=== PATIENT | female | born 1940 | race Caucasian/White ===

== ENCOUNTER → 2017-10-23 | Outpatient (CLI) | payer OTHER, BC ==
[~2017-10-23] MED LIST: ACET-1693 PO; AMB10 PO; ASPI1TAB83 PO; ATOR-24 PO; CLOP1TAB5 PO; DICL1GEL12 TOP; DOCU-94 PO; DONE1TAB25 PO; FAMO40TA6 PO; FERR1TAB62 PO; FLUO0.1S2 OP; FOLI1TAB8 PO; GLIM2TAB PO; HYDR-4079 PO; HYDRCRE28 PR; IMDSR30 PO; LEVO125T5 PO; LORA0.5T12 PO; LSN5 PO; LYR25 PO; MAGN400C2 PO; METO-217 PO; MOML PO; NITR0.4S UT; NVLGI SC; PILO5TAB2 PO; POLY335019 PO; PREG75CA PO; SENN-91 PO; SERT1TAB88 PO; SODIENE PR; TOPI200T6 PO
== END | disposition home or self-care (01) ==
LOC: C.LABMFLN 14:21
PROVIDERS: ATTEND Family Medicine
DX: R07.9 Chest pain, unspecified (principal); R30.0 Dysuria

== ENCOUNTER → 2017-11-28 | Outpatient (CLI) | payer OTHER, BC | END | disposition home or self-care (01) | LOC: C.LABMFLN 18:24 | PROVIDERS: ATTEND Family Medicine | DX: R32 Unspecified urinary incontinence (principal) ==

== ENCOUNTER → 2018-01-21 | Outpatient (CLI) | payer OTHER, BC ==
[2018-01-21 18:14] LABS: BASO % 0.6 %; BASO ABS # 0.04 K/uL (0-0.2); EOS % 3.2 %; HEMATOCRIT 37.4 % (37-47); HEMOGLOBIN 12.2 g/dL (12.0-16.0); IG# 0.02 K/uL (0.00-0.02); LYMPH % 25.7 %; LYMPH ABS # 1.61 K/uL (1.2-3.4); MEAN CELL VOLUME 97.1 fL (80-100); MEAN CORPUSCULAR HEMOGLOBIN 31.7 pg (25-34); MEAN CORPUSCULAR HGB CONC 32.6 g/dl (32-36); MEAN PLATELET VOLUME 11.1 fL (7.4-10.4); MONO ABS # 1.38 K/uL (0.11-0.59); NEUT % 48.2 %; NEUT ABS # 3.02 K/uL (1.4-6.5); PLATELET COUNT 143 K/uL (130-400); RED CELL DISTRIBUTION WIDTH CV 15.8 % (11.5-14.5); RED CELL DISTRIBUTION WIDTH SD 56.2 fL (36.4-46.3); WHITE BLOOD COUNT 6.27 K/uL (4.8-10.8)
[2018-01-21 19:29] LABS: BLOOD UREA NITROGEN 22 mg/dl (7-18); CARBON DIOXIDE 26 mmol/L (21-32); GLUCOSE 252 mg/dl (70-99); POTASSIUM 3.9 mmol/L (3.5-5.1); SODIUM 141 mmol/L (136-145)
[2018-01-22 06:12] LABS: HEMOGLOBIN A1C 7.8 % (4.5-5.6)
== END | disposition home or self-care (01) ==
LOC: C.LABMFLN 12:00
PROVIDERS: ATTEND Family Medicine
DX: E64.9 Sequelae of unspecified nutritional deficiency (principal); E11.9 Type 2 diabetes mellitus without complications

== ENCOUNTER → 2018-04-16 | Outpatient (CLI) | payer OTHER, BC ==
[~2018-04-16] MED LIST changes: +LISI-730 PO; -LSN5 PO
== END | disposition home or self-care (01) ==
LOC: C.LABMFLN 15:07
PROVIDERS: ATTEND Family Medicine
DX: N39.0 Urinary tract infection, site not specified (principal)